=== PATIENT | male | born 1985 | race Two or more races ===

== ENCOUNTER 2021-01-11 05:27 | Emergency (ER) | payer BC ==
[~2021-01-11] VITALS: Ht 165.1 cm; Wt 82.0 kg
[2021-01-11 06:15] VITALS: BP 140/76
[2021-01-11] MEDS ORDERED: DIPH,PERTUSS(ACELL),TET VAC/PF 0.5 ML SYRINGE. VAX IM ONE (07:15)
--- NOTE | 2021-01-11 07:56 | PHYS DOC ---
Past Medical History Past Medical History: Other Additional Past Medical Histor: congenital R hip defect Past Surgical History: Other Additional Past Surgical Histo: R knee ACL, LUE fx Smoking Status: Never Smoker Alcohol Use: None General Adult EDM: Chief Complaint: HAND PROBLEM HPI: HPI: HPI/ED course: This is a 35-year-old male who sustained a hand laceration after cutting his hand with glass. He was waiting in the waiting room [facility] prior to my arrival to my shift. I got on shift at 6 AM. The physician on before I got on was there was MATTHIEU MENJIVAR DO. Her shift ended at 6 AM. When I came on there multiple patients with multiple medical conditions that needed acute treatment. Including life/limb threatening illness that needed transfer and treatment. The patient is unable to wait to be treated because he has to go to work. He has 2 wounds of the hand that need repaired and it is unclear whether it is glass in the wounds. I had ordered an x-ray and tetanus shot. He refused x-ray and tetanus shot. Our nurse was able to washout the wounds for him while he was here. He understands the risks of not getting treated including disability, the inability to use his hand or have hand function. The inability to work. He then left AGAINST MEDICAL ADVICE. AMA I informed the patient of their right to a medical screening exam and any treatment and/or stabilization that may be necessary regardless of their ability to pay. The patient appears to have intact insight, judgment, and reason. In my opinion, this patient has the capacity to make decisions. The patient presented with right hand injury and I am concerned that he could have retained foreign body, lose function to the hand, have a tendon injury, be disabled, not be able to work, get infection in his hand which could lead to or disability. My initial plan prior to the pt expressing the desire to leave was x-ray and tetanus update with further exploration of the wound and suturing. I explained the risk of and disability to the patient in plain language which they were able to demonstrate in their own words verbal understanding. I discussed the limitations of the workup thus far included but were not limited to further evaluation of the wound x-ray and wound repair with sutures, and or referral for hand surgeon. The pt has verbalized understanding of my concerns. I offered alternatives to the therapy including follow-up with PCP today or return to the emergency department as soon as possible. I recommended the pt follow up with PCP or hand surgeon today immediately upon leaving. I explained that at any time if the patient changed their mind, we are always open and would be happy to have them back. The patient refused further care and then left against medical advice. Heart Score: C/O Chest Pain: No Risk Factors: Risk Factors: DM, Current or recent (<one month) smoker, HTN, HLP, family history of CAD, obesity. Risk Scores: Score 0 - 3: 2.5% MACE over next 6 weeks - Discharge Home Score 4 - 6: 20.3% MACE over next 6 weeks - Admit for Clinical Observation Score 7 - 10: 72.7% MACE over next 6 weeks - Early Invasive Strategies Current Medications: Current Medications Medications (Trade) Dose Ordered Sig/Dale Start Time Stop Time Status Last Admin Dose Admin Diphtheria/ Tetanus/Acell Pertussis (ADACEL TDap SYRINGE) 0.5 ml ONCE ONCE 01/11/21 07:15 01/11/21 07:27 DC Allergies: Allergies: Allergies Coded Allergies Type Severity Reaction Last Updated Verified No Known Drug Allergies 01/11/21 No Physical Exam: PE: Constitutional: Well developed, well nourished, no acute distress, non-toxic appearance. [] HENT: Normocephalic, atraumatic, bilateral external ears normal, oropharynx moist, no oral exudates, nose normal. [] Eyes: PERRLA, EOMI, conjunctiva normal, no discharge. [] Neck: Normal range of motion, no tenderness, supple, no stridor. [] Cardiovascular:Heart rate regular rhythm, no murmur [] Lungs & Thorax: Bilateral breath sounds clear to auscultation [] Abdomen: Bowel sounds normal, soft, no tenderness, no masses, no pulsatile mas ses. [] Skin: Warm, dry, no erythema, no rash. [] Back: No tenderness, no CVA tenderness. [] Extremities: The patient's right upper extremity is neurovascular intact with palpable pulse and 2-second cap refill. He has multiple small lacerations about 1 cm in length. The deepest one is on his fourth digit of the dorsal aspect just proximal to the proximal interphalangeal joint. He has normal range of motion of that joint. No obvious foreign bodies in any of the lacerations. The remainder the extremities are atraumatic and without any acute findings. Neurologic: Alert and oriented X 3, normal motor function, normal sensory function, no focal deficits noted. [] Psychologic: Affect normal, judgement normal, mood normal. [] Current Patient Data: Vital Signs: Vital Signs Date Time Temp Pulse Resp B/P (MAP) Pulse Ox O2 Delivery O2 Flow Rate FiO2 01/11/21 06:15 98.2 75 20 140/76 (97) 98 Room Air 98.2 EKG: EKG: [] Radiology/Procedures: Radiology/Procedures: [] Course & Med Decision Making: Course & Med Decision Making Pertinent Labs and Imaging studies reviewed. (See chart for details) [] Dragon Disclaimer: Dragon Disclaimer: This electronic medical record was generated, in whole or in part, using a voice recognition dictation system. Departure Departure Impression: Primary Impression: Left against medical advice Disposition: 07 LEFT AGAINST MEDICAL ADVICE Condition: GUARDED ARABELLA LUTZ MD Jan 11, 2021 07:56
== END 2021-01-11 07:28 | disposition left against medical advice (07) ==
LOC: ER 05:27
DX: S61.411A Laceration without foreign body of right hand, initial encounter (principal); S61.214A Laceration without foreign body of right ring finger without damage to nail, initial encounter; W25.XXXA Contact with sharp glass, initial encounter; Y93.89 Activity, other specified; Y92.89 Other specified places as the place of occurrence of the external cause; Y99.8 Other external cause status
CPT/HCPCS: 99281; 99282